=== PATIENT | female | born 1965 | race Caucasian/White ===

== ENCOUNTER 2018-12-03 09:41 | Emergency (ER) | payer MEDICAID ==
[2018-12-03] MEDS ORDERED: Sodium Chloride 0.9% 1,000 ML IV SCH (11:00)
[2018-12-03] MEDS ORDERED: Doxycycline 100 MG in Sodium Chloride 0.9% 100 ML IV ONE (11:01)
[2018-12-03] MEDS ORDERED: HYDROmorphone 0.5 MG/0.5 ML Syringe IVPUSH ONE (11:05)
--- NOTE | 2018-12-03 11:53 | EDM.PDOC ---
ED HPI GENERAL MEDICAL PROBLEM - General Chief Complaint: General Stated Complaint: FEVER, BODY ACHES Time Seen by Provider: 12/03/18 09:50 Source of Information: Reports: Patient History Limitations: Reports: No Limitations - History of Present Illness INITIAL COMMENTS - FREE TEXT/NARRATIVE: pt was seen at the clinic yesterday and had tick studies drawn and was told she may have a UTI. She was placed on cipro. She has had tick exposure. She has total body aches and she is spiking temps. She had a temp of 102 last nite. Onset: Gradual, Other ( several days of not feeling well. ) Duration: Hour(s): Location: Reports: Generalized Associated Symptoms: Reports: Diaphoresis, Fever/Chills Generalized Pain Score (Numeric/FACES): 7 - Related Data Allergies Allergy/AdvReac Type Severity Reaction Status Date / Time No Known Allergies Allergy Verified 12/03/18 10:08 Home Meds: Home Meds Acetaminophen [Tylenol] 650 mg PO 12/03/18 [History] Ciprofloxacin HCl [Cipro] 500 mg PO 12/03/18 [History] Past Medical History HEENT History: Reports: Impaired Vision Genitourinary History: Reports: Other (See Below) Other Genitourinary History: recent tx UTI Musculoskeletal History: Reports: Other (See Below) Other Musculoskeletal History: generalized jhoint and head pain Neurological History: Reports: TIA Social & Family History - Tobacco Use Smoking Status *Q: Never Smoker - Caffeine Use Caffeine Use: Reports: Coffee - Recreational Drug Use Recreational Drug Use: No ED ROS GENERAL - Review of Systems Review Of Systems: See Below Constitutional: Reports: Fever, Chills, Malaise, Weakness HEENT: Reports: No Symptoms Respiratory: Reports: No Symptoms Cardiovascular: Reports: No Symptoms Endocrine: Reports: No Symptoms GI/Abdominal: Reports: No Symptoms : Reports: No Symptoms Musculoskeletal: Reports: Muscle Pain, Muscle Stiffness, Other (joint pain) Skin: Reports: No Symptoms Neurological: Reports: Headache Psychiatric: Reports: No Symptoms Hematologic/Lymphatic: Reports: No Symptoms Immunologic: Reports: No Symptoms ED EXAM, GENERAL - Physical Exam Exam: See Below Free Text/Narrative:: Pt arrived with a history of spiking a temp last nite, total body aches. She was seen at the clinic and tick studies were sent off. Exam Limited By: No Limitations General Appearance: Alert, Moderate Distress, Other (pupils are equal and reactive. ) Ears: Normal TMs Nose: Normal Inspection Throat/Mouth: Normal Inspection Head: Atraumatic Neck: Normal Inspection Respiratory/Chest: No Respiratory Distress Cardiovascular: Regular Rate, Rhythm GI/Abdominal: Soft, Non-Tender (Female) Exam: Deferred Rectal (Female) Exam: Deferred Back Exam: Normal Inspection Extremities: Normal Inspection, Other (pt has joint pain) Neurological: Alert, Oriented, Normal Cognition Course - Vital Signs Last Recorded V/S: Last Vital Signs Temp 36.5 C 12/03/18 09:54 Pulse 68 12/03/18 09:54 Resp 18 12/03/18 09:54 BP 95/55 L 12/03/18 09:54 Pulse Ox - Orders/Labs/Meds Orders: Active Orders 24 hr Category Date Time Status CULTURE URINE [RM] Stat Lab 12/03/18 11:02 Received Doxycycline [Vibramycin] 100 mg Med 12/03/18 11:01 Active Sodium Chloride 0.9% [Normal Saline] 100 ml IV ONETIME Sodium Chloride 0.9% [Normal Saline] 1,000 ml Med 12/03/18 11:00 Active IV ASDIRECTED Medication Orders Sodium Chloride (Normal Saline) 1,000 mls @ 999 mls/hr IV ASDIRECTED BARBARA Last Admin: 12/03/18 11:18 Dose: 999 mls/hr Doxycycline Hyclate 100 mg/ (Sodium Chloride) 100 mls @ 100 mls/hr IV ONETIME ONE Stop: 12/03/18 12:00 Last Admin: 12/03/18 11:25 Dose: 100 mls/hr Labs: Laboratory Tests 12/03/18 12/03/18 12/03/18 Range/Units 10:17 10:17 10:17 WBC 4.4 L (4.5-11.0) K/uL RBC 4.33 (3.30-5.50) M/uL Hgb 13.3 (12.0-15.0) g/dL Hct 39.3 (36.0-48.0) % MCV 91 (80-98) fL MCH 31 (27-31) pg MCHC 34 (32-36) % Plt Count 129 L (150-400) K/uL Neut % (Auto) 83 H (36-66) % Lymph % (Auto) 10 L (24-44) % Ness % (Auto) 6 (2-6) % Eos % (Auto) 0 L (2-4) % Baso % (Auto) 0 (0-1) % PT 28.0 H (9.5-12.0) sec INR 2.75 H (0.80-1.20) Sodium 131 L (140-148) mmol/L Potassium 3.4 L (3.6-5.2) mmol/L Chloride 96 L (100-108) mmol/L Carbon Dioxide 26 (21-32) mmol/L Anion Gap 12.4 (5.0-14.0) mmol/L BUN 12 (7-18) mg/dL Creatinine 0.9 (0.6-1.0) mg/dL Est Cr Clr Drug Dosing 56.52 mL/min Estimated GFR (MDRD) > 60 (>60) Glucose 150 H (74-106) mg/dL Calcium 8.4 L (8.5-10.1) mg/dL Total Bilirubin 0.6 (0.2-1.0) mg/dL AST 40 H (15-37) U/L ALT 37 (12-78) U/L Alkaline Phosphatase 49 (46-116) U/L Total Protein 6.7 (6.4-8.2) g/dL Albumin 3.2 L (3.4-5.0) g/dL Globulin 3.5 (2.3-3.5) g/dL Albumin/Globulin Ratio 0.9 L (1.2-2.2) Urine Color Urine Appearance Urine pH (4.5-8.0) Ur Specific [place] (1.008-1.030) Urine Protein (NEGATIVE) mg/dL Urine Glucose (UA) (NEGATIVE) mg/dL Urine Ketones (NEGATIVE) mg/dL Urine Occult Blood (NEGATIVE) Urine Nitrite (NEGATIVE) Urine Bilirubin (NEGATIVE) Urine Urobilinogen (NORMAL) mg/dL Ur Leukocyte Esterase (NEGATIVE) Urine RBC (0-5) Urine WBC (0-5) Ur Epithelial Cells Amorphous Sediment Urine Bacteria Urine Mucus 12/03/18 Range/Units 10:32 WBC (4.5-11.0) K/uL RBC (3.30-5.50) M/uL Hgb (12.0-15.0) g/dL Hct (36.0-48.0) % MCV (80-98) fL MCH (27-31) pg MCHC (32-36) % Plt Count (150-400) K/uL Neut % (Auto) (36-66) % Lymph % (Auto) (24-44) % Ness % (Auto) (2-6) % Eos % (Auto) (2-4) % Baso % (Auto) (0-1) % PT (9.5-12.0) sec INR (0.80-1.20) Sodium (140-148) mmol/L Potassium (3.6-5.2) mmol/L Chloride (100-108) mmol/L Carbon Dioxide (21-32) mmol/L Anion Gap (5.0-14.0) mmol/L BUN (7-18) mg/dL Creatinine (0.6-1.0) mg/dL Est Cr Clr Drug Dosing mL/min Estimated GFR (MDRD) (>60) Glucose (74-106) mg/dL Calcium (8.5-10.1) mg/dL Total Bilirubin (0.2-1.0) mg/dL AST (15-37) U/L ALT (12-78) U/L Alkaline Phosphatase (46-116) U/L Total Protein (6.4-8.2) g/dL Albumin (3.4-5.0) g/dL Globulin (2.3-3.5) g/dL Albumin/Globulin Ratio (1.2-2.2) Urine Color Yellow Urine Appearance Cloudy Urine pH 5.0 (4.5-8.0) Ur Specific [place] 1.020 (1.008-1.030) Urine Protein 30 H (NEGATIVE) mg/dL Urine Glucose (UA) Normal (NEGATIVE) mg/dL Urine Ketones 50 H (NEGATIVE) mg/dL Urine Occult Blood Large (NEGATIVE) Urine Nitrite Negative (NEGATIVE) Urine Bilirubin Negative (NEGATIVE) Urine Urobilinogen Normal (NORMAL) mg/dL Ur Leukocyte Esterase Negative (NEGATIVE) Urine RBC Packed H (0-5) Urine WBC 0-5 (0-5) Ur Epithelial Cells Few Amorphous Sediment Not seen Urine Bacteria Moderate Urine Mucus Moderate Meds: Medications Generic Name Dose Route Start Last Admin Trade Name Freq PRN Reason Stop Dose Admin Sodium Chloride 1,000 mls @ 999 mls/hr 12/03/18 11:00 12/03/18 11:18 Normal Saline IV 999 mls/hr ASDIRECTED BARBARA Administration Doxycycline Hyclate 100 mg/ 100 mls @ 100 mls/hr 12/03/18 11:01 12/03/18 11: 25 Sodium Chloride IV 12/03/18 12:00 100 mls/hr ONETIME ONE Administration Discontinued Medications Generic Name Dose Route Start Last Admin Trade Name Lily PRN Reason Stop Dose Admin Hydromorphone HCl 0.5 mg 12/03/18 11:05 12/03/18 11:21 Dilaudid IVPUSH 12/03/18 11:06 0.5 mg ONETIME ONE Administration - Re-Assessments/Exams Free Text/Narrative Re-Assessment/Exam: 12/03/18 11:53 pt had a fair amount o hematuria. She does have a history of hematuria chronicly. She had a urine culture set up. Her wbc is low, her platlets are low and her sgot is mildly elevated. She had a temp of 102 last nite. She was given a liter of fluids and doxycline 100 mg iv. Her inr was ok. Departure - Departure Time of Disposition: 11:55 Disposition: Home, Self-Care 01 Condition: Fair Clinical Impression: Hematuria, Anaplasmosis, Dehydration - Discharge Information Referrals: Kike Kasper MD [Primary Care Provider] - Care Plan Goals: push fluids, stop cipro, will notify of urine culture, doxycline 100mg bid follow up at the clinic with Dr Hitchcock - My Orders Last 24 Hours: My Active Orders 12/03/18 11:00 Sodium Chloride 0.9% [Normal Saline] 1,000 ml IV ASDIRECTED 12/03/18 11:01 Doxycycline [Vibramycin] 100 mg Sodium Chloride 0.9% [Normal Saline] 100 ml IV ONETIME 12/03/18 11:02 CULTURE URINE [RM] Stat - Assessment/Plan Last 24 Hours: My Active Orders 12/03/18 11:00 Sodium Chloride 0.9% [Normal Saline] 1,000 ml IV ASDIRECTED 12/03/18 11:01 Doxycycline [Vibramycin] 100 mg Sodium Chloride 0.9% [Normal Saline] 100 ml IV ONETIME 12/03/18 11:02 CULTURE URINE [RM] Stat
== END 2018-12-03 13:30 | disposition home or self-care (01) ==
LOC: JP.ED 09:41
DX: A77.49 Other ehrlichiosis (principal); E86.0 Dehydration; R31.9 Hematuria, unspecified; Z86.73 Personal history of transient ischemic attack (TIA), and cerebral infarction without residual deficits
CPT/HCPCS: 36415; 80053; 81001; 85025; 85610; 87086; 96365; 96375; 99283; J1170; J3490; J7030